=== PATIENT | male | born 1970 | race Caucasian/White ===

== ENCOUNTER → 2018-06-29 | Outpatient (CLI) | payer OTHER ==
[~2018-06-29] MED LIST: ALPR-429 PO; ELUX100T PO; LIPA1CAP8 PO; RIFA550T PO; ZOLP-350 PO
[2018-06-29 08:29] LABS: PLATELET COUNT, AUTOMATED 181 K/uL (150-450)
[2018-06-29 08:45] LABS: LDL CHOLESTEROL 91 mg/dl
--- NOTE | 2018-06-29 08:55 | RADIOLOGY IMAGING REPORT ---
FACILITY: [facility] [place] PATIENT NAME: Elliot Fair : 1970 MR: [id number] V: [id number] EXAM DATE: ORDERING PHYSICIAN: NOHEMI NICHOLS TECHNOLOGIST: Location: [facility] [place] Patient: Elliot Fair : 1970 Visit/Account:[id number] Date of Sevice: 06/29/2018 Exam type: CHEST PA AND LAT History: History of testicular cancer Comparison: 07/17/2016. Findings: Both lungs are well-expanded and clear. There is no focal infiltrate, pleural effusion or pneumothora x. No pulmonary nodules or definitive metastatic disease. Heart size is normal. The osseous structures demonstrate a mild scoliosis. IMPRESSION: 1. No acute cardiopulmonary disease. No definitive metastatic disease to the chest. Report Dictated By: Alen Da Silva MD at 06/29/2018 8:49 AM Report E-Signed By: Alen Da Silva MD at 06/29/2018 8:50 AM WSN:[id number]
== END ==
LOC: LAB 08:12
PROVIDERS: ATTEND Internal Medicine
DX: M41.84 Other forms of scoliosis, thoracic region (principal); R42 Dizziness and giddiness; Z85.47 Personal history of malignant neoplasm of testis
CPT/HCPCS: 36415; 71046; 82040; 82247; 82310; 82374; 82435; 82465; 82565; 82947; 83718; 84075; 84132; 84155; 84295; 84443; 84450; 84460; 84478; 84520; 85025